=== PATIENT | female | born 1930 | race Two or more races ===

== ENCOUNTER → 2020-06-24 | Emergency (ER) | payer OTHER ==
[~2020-06-24] VITALS: Ht 170.2 cm; Wt 77.1 kg
[~2020-06-24] MED LIST: COZAAR25 MG; NEURONTIN800 MG; XARELTO10 MG
== END | disposition left against medical advice (07) ==
LOC: ER 19:13
DX: S06.2X0A Diffuse traumatic brain injury without loss of consciousness, initial encounter (principal); S01.02XA Laceration with foreign body of scalp, initial encounter; Z20.828 Contact with and (suspected) exposure to other viral communicable diseases; W18.09XA Striking against other object with subsequent fall, initial encounter; Y93.89 Activity, other specified; Y92.092 Bedroom in other non-institutional residence as the place of occurrence of the external cause; Y99.8 Other external cause status

== ENCOUNTER 2020-07-05 10:25 | Emergency (ER) | payer OTHER ==
[~2020-07-05] VITALS: Ht 172.7 cm; Wt 77.1 kg
== END 2020-07-05 11:29 | disposition home or self-care (01) ==
LOC: ER 10:25
DX: Z48.02 Encounter for removal of sutures (principal)

== ENCOUNTER 2020-12-23 08:17 | Emergency (ER) | payer OTHER ==
[~2020-12-23] VITALS: Ht 172.7 cm; Wt 77.1 kg
== END 2020-12-23 09:57 | disposition home or self-care (01) ==
LOC: ER 08:17
DX: S51.821A Laceration with foreign body of right forearm, initial encounter (principal); W45.8XXA Other foreign body or object entering through skin, initial encounter; Y93.89 Activity, other specified; Y92.010 Kitchen of single-family (private) house as the place of occurrence of the external cause; Y99.8 Other external cause status

== ENCOUNTER 2021-01-11 09:09 | Emergency (ER) | payer OTHER ==
[~2021-01-11] VITALS: Ht 162.6 cm; Wt 75.7 kg
== END 2021-01-11 10:05 | disposition home or self-care (01) ==
LOC: ER 09:09
DX: Z48.02 Encounter for removal of sutures (principal)